=== PATIENT | female | born 1950 | race Caucasian/White ===

== ENCOUNTER 2017-11-06 09:00 | Emergency (ER) | payer MEDICARE ==
[2017-11-06 09:03] VITALS: BMI 27.1
[2017-11-06 09:05] VITALS: TEMP 98.3; O2SAT 97
--- NOTE | 2017-11-06 09:34 | ED PDOC ---
Upper Extremity Pain/Injury Time Seen by Provider: 11/06/17 09:17 Chief Complaint (Nursing): Upper Extremity Problem/Injury Chief Complaint (Provider): Left Upper Arm Pain History Per: Patient History/Exam Limitations: no limitations Onset/Duration Of Symptoms: Days (x2) Current Symptoms Are (Timing): Still Present Additional Complaint(s): 67 y/o female with a pmhx of rheumatoid arthritis, who presents to ED for evaluation s/p trip and fall x2 days. Patient states her foot got caught on her carpet yesterday afternoon and she fell forward. She reports left upper arm pain that is worse with movement. She states she took Advil with some relief. She denies head injury or neck pain. PMD: Dr. Cuenca Past Medical History Reviewed: Historical Data, Nursing Documentation, Vital Signs Vital Signs: Last Vital Signs Temp 98.3 F 11/06/17 09:03 Pulse 67 11/06/17 09:03 Resp 16 11/06/17 09:03 BP 142/79 11/06/17 09:03 Pulse Ox 97 11/06/17 09:03 - Medical History PMH: Asthma, Chronic Kidney Disease (Renal Hypertension), Rheumatoid Arthritis - Surgical History Surgical History: No Surg Hx - Family History Family History: States: Unknown Family Hx - Home Medications Home Medications: Ambulatory Orders Medication Instructions Recorded Ascorbic Acid [Vitamin C] 500 mg PO DAILY 08/02/14 Biotin 1 tab PO DAILY 08/02/14 Cholecalciferol [Vitamin D 1000 IU] 1,000 unit PO DAILY 08/02/14 Chondroitin Sulf/Glucosamine3 1 tab PO DAILY 08/02/14 [Foreign Move Free] Cyanocobalamin [Vitamin B12 100 100 mcg PO DAILY 08/02/14 mcg Tab] Pyridoxine [Vitamin B6] 100 mg PO DAILY 08/02/14 Vitamin E 100 unit PO DAILY 08/02/14 Acetaminophen with Codeine 1 tab PO Q6H PRN #10 tab 11/06/17 [Tylenol with Codeine No. 3 300 mg-30 mg] - Allergies Allergies/Adverse Reactions: Allergies Allergy/AdvReac Type Severity Reaction Status Date / Time blue dye Allergy ANAPHYLAXIS Verified 11/06/17 09:11 Review of Systems ROS Statement: Except As Marked, All Systems Reviewed And Found Negative Musculoskeletal: Positive for: Arm Pain (left upper arm). Negative for: Neck Pain Neurological: Negative for: Headache Physical Exam - Reviewed Nursing Documentation Reviewed: Yes Vital Signs Reviewed: Yes - Physical Exam Appears: Positive for: Non-toxic, No Acute Distress Head Exam: Positive for: ATRAUMATIC, NORMAL INSPECTION, NORMOCEPHALIC Skin: Positive for: Normal Color, Warm, Dry. Negative for: Rash Eye Exam: Positive for: EOMI, Normal appearance, PERRL Neck: Positive for: Normal, Painless ROM, Supple Cardiovascular/Chest: Positive for: Regular Rate, Rhythm. Negative for: Murmur Respiratory: Positive for: Normal Breath Sounds. Negative for: Respiratory Distress Gastrointestinal/Abdominal: Positive for: Normal Exam, Soft. Negative for: Tenderness Back: Positive for: Normal Inspection. Negative for: L CVA Tenderness, R CVA Tenderness, Vertebral Tenderness Extremity: Positive for: Normal ROM (full ROM left elbow), Tenderness (minimal left anterior shoulder tenderness, tenderness to left upper arm, no tenderness to left elbow), Other (No ecchymosis or edema to left arm). Negative for: Deformity, Swelling Neurologic/Psych: Positive for: Alert, Oriented - ECG O2 Sat by Pulse Oximetry: 97 (RA) Pulse Ox Interpretation: Normal Medical Decision Making Medical Decision Making: Initial Impression: Left arm pain s/p trip and fall Plan: --X-Ray left humerus --X-Ray left shoulder --Reevaluation Accession No. : [id number] Patient Name / ID : AUGUSTO PORTER / [id number] Exam Date : 11/06/2017 09:36:16 ( Approved ) Study Comment : Sex / Age : F / 67Y Creator : Echo Berry MD Dictator : Echo Berry MD Battalion Chief : Applied Researcher : Echo Berry MD Approver2 : Report Date : 11/06/2017 10:55:50 My Comment : PROCEDURE: Radiographs of the Left Shoulder HISTORY: Fall COMPARISON: No prior. FINDINGS: BONES: There is an acute nondisplaced fracture in the greater tuberosity of the humerus. There is diffuse bone demineralization. Bone alignment is normal. JOINTS: There is mild degenerative osteoarthrosis in the acromioclavicular and glenohumeral joints. SOFT TISSUES: Normal. OTHER FINDINGS: None. IMPRESSION: Acute nondisplaced fracture in the greater tuberosity of the humerus. No evidence of dislocation. Accession No. : [id number] Patient Name / ID : AUGUSTO PORTER / [id number] Exam Date : 11/06/2017 09:36:16 ( Approved ) Study Comment : Sex / Age : F / 67Y Creator : Echo Berry MD Dictator : Echo Berry MD Battalion Chief : Applied Researcher : Echo Berry MD Approver2 : Report Date : 11/06/2017 10:57:43 My Comment : PROCEDURE: Radiographs of the left humerus. HISTORY: Fall COMPARISON: None. FINDINGS: BONES: There is an acute nondisplaced fracture in the greater tuberosity of the humerus. There is diffuse bone demineralization. Bone alignment is normal. SOFT TISSUES: Normal. OTHER FINDINGS: None. IMPRESSION: Acute nondisplaced fracture in the greater tuberosity of the humerus. 11:[address] Cuenca who recommended Dr. Boateng as consult. Dr. Boateng viewed images. Pt will be discharged home with arm splint and advised to follow up with outpatient facility. Scribe Attestation: Documented by Daryl Salinas, acting as a scribe for Usha Murray MD. Provider Scribe Attestation: All medical record entries made by the Scribe were at my direction and personally dictated by me. I have reviewed the chart and agree that the record accurately reflects my personal performance of the history, physical exam, medical decision making, and the department course for this patient. I have also personally directed, reviewed, and agree with the discharge instructions and disposition. Disposition - Clinical Impression Clinical Impression: Fracture of greater tuberosity of humerus - Disposition Referrals: Ellen Boateng MD [Staff Provider] - Shivam Cuenca MD [Family Provider] - Disposition: Routine/Home Disposition Time: 11:37 Condition: STABLE Prescriptions: Acetaminophen with Codeine [Tylenol with Codeine No. 3 300 mg-30 mg] 1 tab PO Q6H PRN #10 tab PRN Reason: Pain, Severe (8-10) Instructions: Upper Arm Fracture Forms: [facility] (Kittitian)
--- NOTE | 2017-11-06 10:57 | RAD ---
PROCEDURE: Radiographs of the Left Shoulder HISTORY: Fall COMPARISON: No prior. FINDINGS: BONES: There is an acute nondisplaced fracture in the greater tuberosity of the humerus. There is diffuse bone demineralization. Bone alignment is normal. JOINTS: There is mild degenerative osteoarthrosis in the acromioclavicular and glenohumeral joints. SOFT TISSUES: Normal. OTHER FINDINGS: None. IMPRESSION: Acute nondisplaced fracture in the greater tuberosity of the humerus. No evidence of dislocation.
--- NOTE | 2017-11-06 10:59 | RAD ---
PROCEDURE: Radiographs of the left humerus. HISTORY: Fall COMPARISON: None. FINDINGS: BONES: There is an acute nondisplaced fracture in the greater tuberosity of the humerus. There is diffuse bone demineralization. Bone alignment is normal. SOFT TISSUES: Normal. OTHER FINDINGS: None. IMPRESSION: Acute nondisplaced fracture in the greater tuberosity of the humerus.
[2017-11-06 11:58] VITALS: BP 143/90; PULSE 61; RESP 18
== END 2017-11-06 11:57 | disposition home or self-care (01) ==
LOC: H.ER 09:00
DX: S42.252A Displaced fracture of greater tuberosity of left humerus, initial encounter for closed fracture (principal); W01.0XXA Fall on same level from slipping, tripping and stumbling without subsequent striking against object, initial encounter; Y92.89 Other specified places as the place of occurrence of the external cause; J45.909 Unspecified asthma, uncomplicated; I12.9 Hypertensive chronic kidney disease with stage 1 through stage 4 chronic kidney disease, or unspecified chronic kidney disease; M06.9 Rheumatoid arthritis, unspecified